=== PATIENT | female | born 1960 | race Caucasian/White ===

== ENCOUNTER 2019-11-09 22:54 | Emergency (ER) | payer OTHER ==
[~2019-11-09] VITALS: Ht 165.1 cm; Wt 122.8 kg
[2019-11-09 23:00] VITALS: BP 149/91
--- NOTE | 2019-11-09 23:02 | PHYS DOC ---
Past History Past Medical History: Arthritis, Hypertension Past Surgical History: Knee Replacement Adult General Chief Complaint Chief Complaint: ".. About ... all sudden this Rt. elbow started hurting.. now it hurts so much... I can't sleep... I don't think I hurt it..." HPI HPI Patient is a 59 year old female who presents with above hx and complaints of Rt elbow edema and pain. Patient states pain started approximately has progress into this weekend. Patient is right-hand dominant. Patient denies any specific history of injury. Distal neurovascular intact. Has obvious areas of edema and ecchymosis on elbow. Patient normally able health. No history of travel. No history immunosuppression. Does have a history of arthritis. Has had need of bilateral knee replacement due to her arthritis issues. No history of gout and or pseudogout.. Normally follows at [place]. Review of Systems Review of Systems Constitutional: Denies fever or chills [] Eyes: Denies change in visual acuity, redness, or eye pain [] HENT: Denies nasal congestion or sore throat [] Respiratory: Denies cough or shortness of breath [] Cardiovascular: No additional information not addressed in HPI [] GI: Denies abdominal pain, nausea, vomiting, bloody stools or diarrhea [] : Denies dysuria or hematuria [] Musculoskeletal: Complains of right elbow pain and edema Integument: Denies rash or skin lesions [] Neurologic: Denies headache, focal weakness or sensory changes [] Endocrine: Denies polyuria or polydipsia [] All other systems were reviewed and found to be within normal limits, except as documented in this note. Family History Family History Noncontributory Current Medications Current Medications See nursing for home medications Allergies Allergies Allergic to tramadol Physical Exam Physical Exam Constitutional: Moderate acute distress, non-toxic appearance. [] HENT: Normocephalic, atraumatic, bilateral external ears normal, oropharynx moist, no oral exudates, nose normal. [] Eyes: PERRLA, EOMI, conjunctiva normal, no discharge. [] Neck: Normal range of motion, no tenderness, supple, no stridor. [] Cardiovascular:Heart rate regular rhythm, no murmur [] Lungs & Thorax: Bilateral breath sounds clear to auscultation [] Abdomen: Bowel sounds normal, soft, no tenderness, no masses, no pulsatile masses. Obese Skin: Warm, dry, no erythema, no rash. [] Back: No tenderness, no CVA tenderness. [] Extremities: No tenderness, no cyanosis, no clubbing, ROM intact, no edema. []Except findings of right elbow pain and edema as per history of present illness . Bilateral knee scars. Neurologic: Alert and oriented X 3, normal motor function, normal sensory function, no focal deficits noted. [] Psychologic: Affect anxious, judgement normal, mood normal. [] EKG EKG [] Radiology/Procedures Radiology/Procedures [][address] [address] IMAGING REPORT Signed PATIENT: JENI SMITH ACCOUNT: [id number] : 1960 LOCATION: ER AGE: 59 SEX: F EXAM STATUS: REG ER ORD. PHYSICIAN: KISHOR DUCKWORTH MD REASON: pain PROCEDURE: ELBOW RIGHT 3V ELBOW RIGHT 3V DATE: 11/09/2019 11:29 PM INDICATION: Pain COMPARISON: None. FINDINGS/ IMPRESSION: Small ossific fragment adjacent to the medial malleolus, which may relate to degenerative change or age indeterminate injury. Correlate for focal tenderness. Elbow joint is congruent. Electronically signed by: Noel Diana MD (11/10/2019 12:42 AM) [facility] DICTATED AND SIGNED BY: NOEL DIANA MD DATE: 11/10/19 0042 CC: SANKET CRUZ; KISHOR DUCKWORTH MD ~ Course & Med Decision Making Course & Med Decision Making Pertinent Labs and Imaging studies reviewed. (See chart for details) Distal neurovascular intact after application of sling. Recently to keep right elbow elevated. Wear sling. May take sling due to range of motion is 4 times a day. Take Tylenol and ibuprofen for pain. For marked pain may take Vicoprofen up to 4 times a day. Patient given a copy of x-ray to take with her on follow-up at [facility]. Patient follow-up with orthopedics. Patient return if any concerns. Impression: 1. Rt. Elbow Contusion 2. Spur Fracture Rt Elbow [] Dragon Disclaimer Dragon Disclaimer This electronic medical record was generated, in whole or in part, using a voice recognition dictation system. Departure Departure: Disposition: 01 HOME/RESIDENCE PRIOR TO ADM Condition: STABLE Referrals: SANKET CRUZ (PCP) Scripts Hydrocodone/Ibuprofen (HYDROCODONE-IBUPROFEN 7.5-200 ) 1 Each Tablet 1 TAB PO PRN Q6HRS PRN for PAIN, #30 TAB 0 Refills Prov: KISHOR DUCKWORTH MD 11/10/19 Dragon Disclaimer This chart was dictated in whole or in part using Voice Recognition software in a busy, high-work load, and often noisy Emergency Department environment. It may contain unintended and wholly unrecognized errors or omissions. KISHOR DUCKWORTH MD Nov 09, 2019 23:02
[2019-11-09] MEDS ORDERED: HYDROcodon/IBUPROFEN 7.5/200MG 1 TAB TABLET PO ONE (23:30)
--- NOTE | 2019-11-10 00:45 | RAD ---
ELBOW RIGHT 3V DATE: 11/09/2019 11:29 PM INDICATION: Pain COMPARISON: None. FINDINGS/ IMPRESSION: Small ossific fragment adjacent to the medial malleolus, which may relate to degenerative change or age indeterminate injury. Correlate for focal tenderness. Elbow joint is congruent. Electronically signed by: Barber Diana MD (11/10/2019 12:42 AM) [facility]
[2019-11-10] MEDS ORDERED: HYDR-1179 PO (00:54)
[2019-11-10] MEDS ORDERED: ONDANSETRON ODT 4 MG TAB.RAPDIS ONE (01:19)
[2019-11-10] MEDS ORDERED: ONDANSETRON ODT 4 MG TAB.RAPDIS PO ONE (01:30)
[2019-11-10] MEDS ORDERED: ONDANSETRON 4MG ODT 4TABLET STARTPACK. PO ONE (01:30)
== END 2019-11-10 01:38 | disposition home or self-care (01) ==
LOC: ER 22:54
DX: S42.401A Unspecified fracture of lower end of right humerus, initial encounter for closed fracture (principal); M19.90 Unspecified osteoarthritis, unspecified site; I10 Essential (primary) hypertension; Z96.653 Presence of artificial knee joint, bilateral; X58.XXXA Exposure to other specified factors, initial encounter; Y93.89 Activity, other specified; Y92.89 Other specified places as the place of occurrence of the external cause; Y99.8 Other external cause status
CPT/HCPCS: 73080; 99284; Q0162

== ENCOUNTER 2022-03-27 12:34 | Emergency (ER) | payer OTHER ==
[~2022-03-27] VITALS: Ht 165.1 cm; Wt 130.0 kg
[~2022-03-27 12:34] MED LIST: HYDR-1179 PO
[2022-03-27 13:42] LABS: BASO # 0.1 x10^3/uL (0.0-0.2); BASO % 1 % (0-3); CALCIUM 9.2 mg/dL (8.5-10.1); CREATININE 0.7 mg/dL (0.6-1.0); EOS # 0.2 x10^3/uL (0.0-0.7); EOS % 3 % (0-3); GFR 84.8; HEMATOCRIT 43.6 % (36.0-47.0); HEMOGLOBIN 14.3 g/dL (12.0-15.5); LYMPH # 2.7 x10^3/uL (1.0-4.8); LYMPH % 39 % (24-48); MEAN CORPUSCULAR HEMOGLOBIN 28 pg (25-35); MEAN CORPUSCULAR HGB CONC 33 g/dL (31-37); MEAN CORPUSCULAR VOLUME 86 fL (79-100); MONO # 0.4 x10^3/uL (0.0-1.1); MONO % 6 % (0-9); NEUT # 3.5 x10^3uL (1.8-7.7); NEUT % 51 % (31-73); PLATELET COUNT 240 x10^3/uL (140-400); POTASSIUM 3.8 mmol/L (3.5-5.1); RED BLOOD COUNT 5.09 x10^6/uL (3.50-5.40); WHITE BLOOD COUNT 6.8 x10^3/uL (4.0-11.0)
--- NOTE | 2022-03-27 14:20 | PHYS DOC ---
Past History Past Medical History: Arthritis, Hypertension Past Surgical History: Knee Replacement Additional Past Surgical Histo: laura knee replacements; thyroidectomy; tubal lig ation was done x2 Alcohol Use: None Drug Use: None General Adult EDM: Chief Complaint: DIZZY/LIGHT HEADED HPI: HPI: Patient is a 62-year-old female presents with intermittent dizziness for the last 4 weeks. States that symptoms are more with position changes. Denies chest pain, shortness of breath. Patient states I called my PCP a week ago and they told me to follow-up in the emergency room prior to coming and seeing them. Patient states that she just never got around to following up in the ER. Denies symptoms being worse. No recent illness. Patient does report some seasonal allergies. Patient states that she has an appointment tomorrow with her PCP. History of arthritis and hypertension. Review of Systems: Review of Systems: ROS At least 10 ROS systems have been reviewed and are negative except as documented in the HPI. General: Negative except as outlined in HPI above. Skin: Negative except as outlined in HPI above. HEENT: Negative except as outlined in HPI above. Neck: Negative except as outlined in HPI above. Respiratory: Negative except as outlined in HPI above.. Cardiovascular: Negative except as outlined in HPI above. Abdomen: Negative except as outlined in HPI above. : Negative except as outlined in HPI above. Back/MSK: Negative except as outlined in HPI above. Neuro: Negative except as outlined in HPI above. Psych: Negative except as outlined in HPI above. Allergies: Allergies: Allergies Coded Allergies Type Severity Reaction Last Updated Verified tramadol Allergy Unknown 11/09/19 Yes Physical Exam: PE: Constitutional: Well developed, well nourished, no acute distress, non-toxic appearance. [] HENT: Normocephalic, atraumatic, bilateral external ears normal, oropharynx moist, no oral exudates, nose normal. [] Eyes: PERRLA, EOMI, conjunctiva normal, no discharge. [] Neck: Normal range of motion, no tenderness, supple, no stridor. [] Cardiovascular:Heart rate regular rhythm, no murmur [] Lungs & Thorax: Bilateral breath sounds clear to auscultation [] Abdomen: Bowel sounds normal, soft, no tenderness, no masses, no pulsatile masses. [] Skin: Warm, dry, no erythema, no rash. [] Back: No tenderness, no CVA tenderness. [] Extremities: No tenderness, no cyanosis, no clubbing, ROM intact, no edema. [] Neurologic: Alert and oriented X 3, normal motor function, normal sensory function, no focal deficits noted. [] Psychologic: Affect normal, judgement normal, mood normal. [] Current Patient Data: Labs: Laboratory Tests Test 03/27/22 13:10 White Blood Count 6.8 x10^3/uL (4.0-11.0) Red Blood Count 5.09 x10^6/uL (3.50-5.40) Hemoglobin 14.3 g/dL (12.0-15.5) Hematocrit 43.6 % (36.0-47.0) Mean Corpuscular Volume 86 fL (79-100) Mean Corpuscular Hemoglobin 28 pg (25-35) Mean Corpuscular Hemoglobin Concent 33 g/dL (31-37) Red Cell Distribution Width 15.0 % (11.5-14.5) H Platelet Count 240 x10^3/uL (140-400) Neutrophils (%) (Auto) 51 % (31-73) Lymphocytes (%) (Auto) 39 % (24-48) Monocytes (%) (Auto) 6 % (0-9) Eosinophils (%) (Auto) 3 % (0-3) Basophils (%) (Auto) 1 % (0-3) Neutrophils # (Auto) 3.5 x10^3uL (1.8-7.7) Lymphocytes # (Auto) 2.7 x10^3/uL (1.0-4.8) Monocytes # (Auto) 0.4 x10^3/uL (0.0-1.1) Eosinophils # (Auto) 0.2 x10^3/uL (0.0-0.7) Basophils # (Auto) 0.1 x10^3/uL (0.0-0.2) Sodium Level 140 mmol/L (136-145) Potassium Level 3.8 mmol/L (3.5-5.1) Chloride Level 104 mmol/L (98-107) Carbon Dioxide Level 29 mmol/L (21-32) Anion Gap 7 (6-14) Blood Urea Nitrogen 16 mg/dL (7-20) Creatinine 0.7 mg/dL (0.6-1.0) Estimated GFR (Cockcroft-Gault) 84.8 Glucose Level 142 mg/dL (70-99) H Calcium Level 9.2 mg/dL (8.5-10.1) Troponin I High Sensitivity 6 ng/L (4-50) Vital Signs: Vital Signs Date Time Temp Pulse Resp B/P (MAP) Pulse Ox O2 Delivery O2 Flow Rate FiO2 03/27/22 12:39 98.7 90 16 161/93 (115) 97 Room Air EKG: EKG: [] Radiology/Procedures: Radiology/Procedures: [] Heart Score: C/O Chest Pain: No Risk Factors: Risk Factors: DM, Current or recent (<one month) smoker, HTN, HLP, family history of CAD, obesity. Risk Scores: Score 0 - 3: 2.5% MACE over next 6 weeks - Discharge Home Score 4 - 6: 20.3% MACE over next 6 weeks - Admit for Clinical Observation Score 7 - 10: 72.7% MACE over next 6 weeks - Early Invasive Strategies Course & Med Decision Making: Course & Med Decision Making Pertinent Labs and Imaging studies reviewed. (See chart for details) [] 60-year-old female presents with intermittent dizziness for the last month. Symptoms increased with standing up and changing positions. No shortness of breath or chest pain. Patient was sent in by her PCP and has a appointment tomorrow. Patient denies symptoms worsening. Denies falls. No neuro symptoms, no weakness, numbness, tingling, headache. Work-up in ER consisted of CBC, CMP, troponin. Patient given NS bolus. All labs unremarkable. Troponin is negative. I discussed all results with patient. Advised patient to change positions slowly since that its exacerbating symptoms. Drink plenty of fluids. Make sure you keep your appointment tomorrow with your PCP for follow-up for further management. Discussed return precautions in length with patient. Patient verbalizes understanding of discharge instructions. Elbert Disclaimer: Elbert Disclaimer: This electronic medical record was generated, in whole or in part, using a voice recognition dictation system. Departure Departure: Impression: Primary Impression: Dizziness Disposition: HOME / SELF CARE / HOMELESS Condition: STABLE Referrals: SANKET CRUZ (PCP) Patient Instructions: Dizziness, [id number] Additional Instructions: You were seen in the emergency room for dizziness. All of your labs were unremarkable. Make sure that you are drinking plenty of water. Make sure when you are going from a sitting to a standing position, that you change positions slowly. Please return to the emergency room if you have worsening symptoms or concerns. EMERGENCY DEPARTMENT GENERAL DISCHARGE INSTRUCTIONS Thank you for coming to [facility] (ED) today and trusting us with you care. We trust that you had a positivie experience in our Emergency Department. If you wish to speak to the department management, you may call the director at [phone]. YOUR FOLLOW UP INSTRUCTIONS ARE FOLLOWS: 1. Do you have a private Doctor? If you do not have a private doctor, please ask for a resource list of physicians or clinics that may be able to assist you with follow up care. 2. The Emergency Physician has interpreted your x-rays. The X-Ray specialist will also review them. If there is a change in the findings, you will be notified in 48 hours when at all possible. 3. A lab test or culture has been done, your results will be reviewed and you will be notified if you need a change in treatment. ADDITIONAL INSTRUCTIONS AND INFORMATION: 1. Your care today has been supervised by a physician who is specially trained in emergency care. Many problems require more than one evaluation for a complete diagnosis and treatment. We recommend that you schedule your follow up appointment as recommended to ensure complete treatment of you illness or injury. If you are unable to obtain follow up care and continue to have a problem, or if your condition worsens, we recommend that you return to the ED. 2. We are not able to safely determine your condition over the phone nor are we able to give sound medical advice over the phone. For these safety reasons, if you call for medical advice we will ask you to come to the ED for further evaluation. 3. If you have any questions regarding these discharge instructions please call the ED at [phone]. SAFETY INFORMATION: In the interest of safety, wellness, and injury prevention; we encourage you to wear your sealbelt, if you smoke; quite smoking, and we encourage family to use a protective helmet for bicycling and other sporting events that present an increased risk for head injury. IF YOUR SYMPTOMS WORSEN OR NEW SYMPTOMS DEVELOP, OR YOU HAVE CONCERNS ABOUT YOUR CONDITION; OR IF YOUR CONDITION WORSENS WHILE YOU ARE WAITING FOR YOUR FOLLOW UP APPOINTMENT; EITHER CONTACT YOUR PRIMARY CARE DOCTOR, THE PHYSICIAN WHOSE NAME AND NUMBER YOU WERE GIVEN, OR RETURN TO THE ED IMMEDIATELY. FELI HINDS APRN March 27, 2022 14:20
[2022-03-27 14:31] VITALS: BP 157/90
--- NOTE | 2022-03-27 21:48 | EKG ---
[address] [address] Test Date: 2022-03-27 Test Time: 13:15:25 Pat Name: JENI SMITH Department: Room: Gender: F Supervisor [employer] Processing: : 1960 Requested By: FELI HINDS Order Number: [id number] Reading MD: Measurements Intervals Odell Rate: 77 P: 22 AL: 134 QRS: -28 QRSD: 102 T: 31 QT: 392 QTc: 445 Interpretive Statements SINUS RHYTHM LEFTWARD AXIS R-S TRANSITION ZONE IN V LEADS DISPLACED TO THE LEFT INCOMPLETE RIGHT BUNDLE BRANCH BLOCK LEFT VENTRICULAR HYPERTROPHY ABNORMAL ECG RI6.02 No previous ECG available for comparison
== END 2022-03-27 14:31 | disposition home or self-care (01) ==
LOC: ER 12:38
DX: R42 Dizziness and giddiness (principal); M19.90 Unspecified osteoarthritis, unspecified site; I10 Essential (primary) hypertension; Z88.8 Allergy status to other drugs, medicaments and biological substances
CPT/HCPCS: 36415; 80048; 84484; 85025; 93005; 99284